=== PATIENT | male | born 1975 | race Caucasian/White ===

== ENCOUNTER 2016-08-30 09:55 | Observation (INO) | payer OTHER ==
[~2016-08-30] VITALS: Wt 90.6 kg
[2016-08-30] VITALS (7 sets, daily range): BP systolic 102–149; BP diastolic 68–99; PULSE 67–85; RESP 15–24
[2016-08-30] MEDS ORDERED: KETOROLAC 30 MG INJ IV STA (10:39)
[2016-08-30] MEDS ORDERED: SOD CHLORIDE 0.9% 1,000 ML IV STA (10:39)
[2016-08-30 11:16] LABS: BASOPHILS % 0.2 % (0.0-2.0); EOSINOPHILS # 0.1 10^3/ul (0.0-0.5); EOSINOPHILS % 0.4 % (0.0-7.0); HEMATOCRIT 42.9 % (42.0-52.0); HEMOGLOBIN 14.4 g/dl (14.0-18.0); LYMPHOCYTES # 1.6 10^3/ul (0.8-2.9); LYMPHOCYTES % 13.8 % (15.0-51.0); MEAN CORPUSCULAR HEMOGLOBIN 28.6 pg (29.0-33.0); MEAN CORPUSCULAR HGB CONC 33.6 g/dl (32.0-37.0); MEAN CORPUSCULAR VOLUME 85.1 fl (82.0-101.0); MEAN PLATELET VOLUME 6.6 fl (7.4-10.4); MONOCYTE # 1.4 10^3/ul (0.3-0.9); NEUTROPHIL # 8.6 10^3/ul (1.6-7.5); NEUTROPHILS % 73.6 % (39.0-77.0); PLATELET COUNT 300 10^3/UL (140-440); RED BLOOD COUNT 5.04 10^6/ul (4.70-6.10); RED CELL DISTRIBUTION WIDTH 12.8 % (11.5-14.5); UNCORRECTED WBC 11.6 10^3/ul (4.8-10.8); WHITE BLOOD COUNT 11.6 10^3/ul (4.8-10.8)
[2016-08-30 11:23] LABS: ALBUMIN 4.3 g/dl (3.3-4.9)
[2016-08-30 11:24] LABS: POTASSIUM 3.9 mmol/L (3.5-5.1)
[2016-08-30 11:26] LABS: ALBUMIN/GLOBULIN RATIO 1.02; BILIRUBIN,INDIRECT 0.3 mg/dl (0-1.1); BILIRUBIN,TOTAL 0.3 mg/dl (0.2-1.3); CREATININE 0.89 mg/dl (0.61-1.24); TOTAL PROTEIN 8.5 g/dl (6.1-8.1)
[2016-08-30 11:27] LABS: CALCIUM 9.3 mg/dl (8.4-10.2)
[2016-08-30 11:30] LABS: CONDITION 1
[2016-08-30] MEDS ORDERED: ASPIRIN 325 MG TAB ONE (13:24)
[2016-08-30] MEDS ORDERED: HEPARIN 25000 UNITS/250 ML 250 ML IV STA (13:26)
[2016-08-30] MEDS ORDERED: ASPIRIN 325 MG TAB PO ONE (13:30)
[2016-08-30] MEDS ORDERED: CLOPIDOGREL 75 MG TAB PO ONE (13:30)
[2016-08-30] MEDS ORDERED: ATORVASTATIN 40 MG TAB PO ONE (13:30)
--- NOTE | 2016-08-30 13:44 | ERA ---
ER Documentation Chief Complaint Date/Time DATE: 08/30/16 TIME: 13:38 Chief Complaint chest pain today with hx of cough and uri symptoms.possible stemi in field HPI Patient comes in by ambulance with sudden onset chest pain that began around 0 800 a.m. this morning. The pain radiated into the back of his neck. He described it as a pressure sensation that gradually worsened with shortness of breath and nausea. He states initially he did not want to come to the emergency department but his girlfriend or called the ambulance and brought him here. He states that he is also had a fever with a sore throat for the last 4 days. He saw his primary care physician on Wednesday for the sore throat and was prescribed Zithromax. He states that has improved significantly. He denies any coughing, congestion, rhinorrhea, otalgia, dizziness, loss of consciousness, vomiting, diarrhea, abnormal rashes, leading, bruises, sick contacts, swelling. Patient states he has never experienced this type of pain before. He states at the time of presentation his chest pain is already resolved. ROS All systems reviewed and are negative except as per history of present illness. Medications Home Meds No Active Prescriptions or Reported Meds Allergies Allergies: Coded Allergies: No Known Allergy (Unverified , 08/30/16) PMhx/Soc Medical and Surgical Hx: pt denies Medical Hx, pt denies Surgical Hx Hx Alcohol Use: Yes Hx Tobacco Use: Yes Smoking Status: Current every day smoker FmHx Family History: coronary disease, No diabetes Physical Exam Vitals Vital Signs Date Time Temp Pulse Resp B/P Pulse Ox O2 Delivery O2 Flow Rate FiO2 08/30/16 11:48 Nasal Cannula 2 08/30/16 09:58 100.7 83 20 142/82 99 Physical Exam Const: Well-developed well-nourished male sitting on the bed calmly, very pleasant Head: Atraumatic Eyes: Normal Conjunctiva ENT: Normal External Ears, Nose and Mouth. Posterior pharynx is slightly erythematous Neck: Full range of motion..~ No meningismus. Resp: Clear to auscultation bilaterally Cardio: Regular rate and rhythm, no murmurs Abd: Soft, non tender, non distended. Normal bowel sounds Skin: No petechiae or rashes Back: No midline or flank tenderness Ext: No cyanosis, or edema Neur: Awake and alert Psych: Normal Mood and Affect Result Diagram: 08/30/16 1027 08/30/16 1027 Results 24 hrs Laboratory Tests Test 08/30/16 10:27 Alanine Aminotransferase (ALT/SGPT) 58IU/L Albumin 4.3g/dl Albumin/Globulin Ratio 1.02 Alkaline Phosphatase 89IU/L Anion Gap 17 Aspartate Amino Transf (AST/SGOT) 49IU/L Basophils # 0.010^3/ul Basophils % 0.2% Blood Morphology Comment Blood Urea Nitrogen 12mg/dl Calcium Level 9.3mg/dl Carbon Dioxide Level 27mmol/L Chloride Level 99mmol/L Creatinine 0.89mg/dl Direct Bilirubin 0.00mg/dl Eosinophils # 0.110^3/ul Eosinophils % 0.4% Globulin 4.20g/dl Glucose Level 96mg/dl Hematocrit 42.9% Hemoglobin 14.4g/dl Indirect Bilirubin 0.3mg/dl Lymphocytes # 1.610^3/ul Lymphocytes % 13.8% Mean Corpuscular Hemoglobin 28.6pg Mean Corpuscular Hemoglobin Concent 33.6g/dl Mean Corpuscular Volume 85.1fl Mean Platelet Volume 6.6fl Monocytes # 1.410^3/ul Monocytes % 12.0% Monoscreen Negative Neutrophils # 8.610^3/ul Neutrophils % 73.6% Nucleated Red Blood Cells # 0.010^3/ul Nucleated Red Blood Cells % 0.0/100WBC Platelet Count 24795^3/UL Potassium Level 3.9mmol/L Red Blood Count 5.0410^6/ul Red Cell Distribution Width 12.8% Sodium Level 139mmol/L Total Bilirubin 0.3mg/dl Total Protein 8.5g/dl Troponin I 3.680ng/ml White Blood Count 11.610^3/ul Current Medications Medications (Trade) Dose Ordered Sig/Noah Route PRN Reason Start Time Stop Time Status Last Admin Dose Admin Sodium Chloride (NS) 1,000 ml @ 1,000 mls/hr Q1H STAT IV 08/30/16 10:39 08/30/16 11:38 DC 08/30/16 10:39 Ketorolac Tromethamine (Toradol) 30 mg ONCE STAT IV 08/30/16 10:39 08/30/16 10:43 DC 08/30/16 11:43 Aspirin (Aspirin) 325 mg ONCE ONCE PO 08/30/16 13:30 08/30/16 13:31 DC 08/30/16 13:25 Clopidogrel Bisulfate 75 mg 75 mg ONCE ONCE PO 08/30/16 13:30 08/30/16 13:31 DC Heparin Sodium (Porcine) (Heparin 72010 Units/250 ml) 250 ml @ 0 mls/hr ONCE STAT IV 08/30/16 13:26 08/30/16 13:29 DC Atorvastatin Calcium (Lipitor) 40 mg ONCE ONCE PO 08/30/16 13:30 08/30/16 13:31 DC Procedures/MDM EKG demonstrates a normal sinus rhythm at approximately 90 bpm with no evidence of acute ischemia noted. No PE pattern noted. Normal ID intervals and normal QRS intervals. No old EKG available for comparison. 1340: Patient remains pain-free. Departure Diagnosis: Primary Impression: Chest pain Qualified Code: R07.9 - Chest pain, unspecified type Additional Impressions: Elevated troponin Fever Qualified Code: R50.9 - Fever, unspecified fever cause Pharyngitis Qualified Code: J02.9 - Pharyngitis, unspecified etiology Condition: COSTA Denson Aug 30, 2016 13:44
[2016-08-30] MEDS ORDERED: HEPARIN 25000 UNITS/250 ML 250 ML ONE (13:51)
[2016-08-30] MEDS ORDERED: CLOPIDOGREL 75 MG TAB ONE (13:52)
[2016-08-30 14:10] LABS: BARBITURATES NEGATIVE (NEGATIVE); BENZODIAZEPINES NEGATIVE (NEGATIVE); CANNABINOIDS NEGATIVE (NEGATIVE); COCAINE NEGATIVE (NEGATIVE); OPIATES NEGATIVE (NEGATIVE)
[2016-08-30] MEDS ORDERED: IODIXANOL LOCM 100 ML BTL ONE (15:25)
[2016-08-30] MEDS ORDERED: LIDOCAINE 1% (MDV) 20 ML INJ ONE (15:25)
[2016-08-30] MEDS ORDERED: VERAPAMIL 5 MG INJ ONE (15:26)
[2016-08-30] MEDS ORDERED: HEPARIN 1000 UNITS/ML 10 ML INJ ONE (15:26)
[2016-08-30] MEDS ORDERED: NITROGLYCERIN (IC) 100 MCG/ML INJ ONE (15:26)
[2016-08-30] MEDS ORDERED: MIDAZOLAM 1 MG/ML 2 ML INJ ONE (15:42)
[2016-08-30] MEDS ORDERED: FENTAnyl 50 MCG/ML VIAL ONE (15:42)
[2016-08-30] MEDS: SOD CHLORIDE 0.9% 1,000 ML IV SCH (17:03)
--- NOTE | 2016-08-30 17:19 | CONS ---
Date/Time of Note Date/Time of Note DATE: 08/30/16 TIME: 17:12 Assessment/Plan Assessment/Plan Additional Assessment/Plan Elevated troponin concerning for non-ST elevation [place] versus myocarditis Sepsis Preserved ejection fraction Family history of premature coronary artery disease -Patient with sudden onset of chest pain this morning with 3-4 days of fevers and chills. Initial troponin 3.6. Patient also with family history of premature coronary artery disease father having CABG done at 39. Given the above, patient underwent coronary angiogram which demonstrate mild nonobstructive coronary artery disease. Would continue aspirin, statin and beta rito. Would treat the underlying infection. Continue IV fluids. Consultation Date/Type/Reason Admit Date/Time Type of Consultation: cv Reason for Consultation Chest pain and elevated troponin Hx of Present Illness This is a 40-year-old male with no significant past medical history with 4 days of sore throat, body aches, fevers and chills. Patient has been on antibiotics for the past few days. This morning, patient with severe left-sided chest pressure as well as midsternum. No shortness of breath. Symptoms lasted for over 30 minutes. He called his and came to the emergency room for evaluation and care. He currently feels better and denies chest pain or shortness of breath. He otherwise denies exertional chest pain or shortness of breath, dizziness or lightheadedness. 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 Exam/Review of Systems Vital Signs Vitals Vital Signs Date Time Temp Pulse Resp B/P Pulse Ox O2 Delivery O2 Flow Rate FiO2 08/30/16 14:56 87 17 178/80 100 Room Air 08/30/16 11:48 2 08/30/16 09:58 100.7 Exam No apparent distress Constitutional: alert, oriented, well developed Head: normocephalic Neck: supple Respiratory: other (course breath sounds bilaterally, no wheezing) Cardiovascular: other (S1-S2 heard), regular rate and rhythm Gastrointestinal: bowel sounds, non-tender, other (no guarding), soft Extremities: other (no edema) Results Result Diagram: 08/30/16 1027 08/30/16 1027 Results 24 hrs Laboratory Tests Test 08/30/16 10:27 08/30/16 13:25 Alanine Aminotransferase (ALT/SGPT) 58 Albumin 4.3 Albumin/Globulin Ratio 1.02 Alkaline Phosphatase 89 Anion Gap 17 H Aspartate Amino Transf (AST/SGOT) 49 H Basophils # 0.0 Basophils % 0.2 Blood Morphology Comment Blood Urea Nitrogen 12 Calcium Level 9.3 Carbon Dioxide Level 27 Chloride Level 99 Creatinine 0.89 Direct Bilirubin 0.00 Eosinophils # 0.1 Eosinophils % 0.4 Globulin 4.20 H Glucose Level 96 Hematocrit 42.9 Hemoglobin 14.4 Indirect Bilirubin 0.3 Lymphocytes # 1.6 Lymphocytes % 13.8 L Mean Corpuscular Hemoglobin 28.6 L Mean Corpuscular Hemoglobin Concent 33.6 Mean Corpuscular Volume 85.1 Mean Platelet Volume 6.6 L Monocytes # 1.4 H Monocytes % 12.0 H Monoscreen Negative Neutrophils # 8.6 H Neutrophils % 73.6 Nucleated Red Blood Cells # 0.0 Nucleated Red Blood Cells % 0.0 Platelet Count 300 Potassium Level 3.9 Red Blood Count 5.04 Red Cell Distribution Width 12.8 Sodium Level 139 Total Bilirubin 0.3 Total Protein 8.5 H Troponin I 3.680 *H White Blood Count 11.6 H Urine Amphetamines Screen NEGATIVE Urine Barbiturates NEGATIVE Urine Benzodiazepines Screen NEGATIVE Urine Cannabinoids NEGATIVE Urine Cocaine Screen NEGATIVE Urine Opiates Screen NEGATIVE Medications Medications Current Medications Miscellaneous Information (* Miscellaneous Pharmacy Order) HOLD all METFORMIN ... ONCE ONCE XX ; Start 08/30/16 at 17:30; Stop 08/30/16 at 17:31 Acetaminophen 650 mg 650 mg Q4H PRN PO NON-CARDIAC PAIN LEVEL (1-3); Start 08/30 at 17:30 Sodium Chloride (NS) 1,000 ml @ 75 mls/hr [id number] IV ; Start 08/30/16 at 17:03; Stop 08/31/16 at 06:22 Atorvastatin Calcium (Lipitor) 20 mg HS PO ; Start 08/31/16 at 21:00 Aspirin (Aspirin) 81 mg DAILY PO ; Start 08/31/16 at 09:00 Metoprolol Tartrate (Lopressor) 25 mg BID PO ; Start 08/30/16 at 21:00; Status UNV Procedures Procedures ECG demonstrates sinus rhythm at 87 bpm, nonspecific STT wave abnormality Phil Sanchez DO Aug 30, 2016 17:19
--- NOTE | 2016-08-30 18:11 | CARRPT ---
DATE OF PROCEDURE: 08/30/2016 PROCEDURES: 1. Left heart catheterization. 2. Right and left coronary angiogram. 3. Interpretation and supervision of coronary angiogram. 4. Left ventricular pressure measurements and left ventriculogram. 5. Right radial artery approach. PATIENT HISTORY: This is a 40-year-old male who presents with non-ST elevation myocardial infarction and chest pain. FINDINGS: HEMODYNAMICS: 1. LV pressure was 108/0 with an EDP of 16. 2. Aortic was 104/61. CORONARY ANATOMY: 1. Left main is a large caliber vessel with no significant disease. 2. Circumflex is a medium caliber vessel. There is a mid 20% stenosis and a distal 10% stenosis. There is a medium caliber first obtuse marginal with an ostial 30% stenosis and a distal 20% diffuse stenosis. 3. LAD is a large caliber vessel with a mid 20% stenosis and a distal 10% stenosis. 4. RCA is a medium caliber vessel and is dominant. There is a mid 20% stenosis and a distal 10% stenosis. 5. Left ventriculogram demonstrated an ejection fraction of 60% with mild inferobasal hypokinesis. DESCRIPTION OF PROCEDURE: The patient was brought to the r and d lab technician after informed consent. The patient was prepped and draped as per protocol. Right radial access was obtained. A 5/6-Bruneian sheath was placed in the right radial artery. A 5-Bruneian JL3.5 diagnostic catheter was used to engage the left main and angiogram was performed. Next, a 5-Bruneian JR4 catheter into the left ventricle and pressure measurements were obtained as well as pullback. Next, we accessed the RCA and angiogram was performed. Given no evidence significant obstructive disease, we proceeded with a left ventriculogram to rule out stress- induced cardiomyopathy. A 6-Bruneian single pigtail was used to enter the left ventricle. Left ventriculogram was performed with normal ejection fraction with no significant abnormalities. All catheters and wires were removed. There were no immediate complications. DIAGNOSES: 1. Myocardial infarction. 2. Mild nonobstructive epicardial coronary artery disease. COMPLICATIONS: None. ESTIMATED BLOOD LOSS: Minimal. RECOMMENDATIONS: Aggressive medical management. Dictated By: INDER MAXWELL/[place] Conf#: [id number] DID#: [id number] [facility] CENTEREmery
[2016-08-30] MEDS ORDERED: morphine 10 MG INJ IM PRN (18:30)
[2016-08-30] MEDS ORDERED: morphine 2 MG INJ ONE (18:31)
[2016-08-30] MEDS: ACETAMINOPHEN 325 MG TAB PO PRN (18:38)
--- NOTE | 2016-08-30 19:18 | RADRPT ---
PROCEDURE: XR Chest. CLINICAL INDICATION: Chest pain. TECHNIQUE: Single frontal chest x-ray. COMPARISON: None. FINDINGS: There is minimal bibasilar atelectasis. No acute infiltrate, pleural effusion or pneumothorax is id entified. Cardiomediastinal silhouette is within normal limits. The osseous structures are unremar kable. IMPRESSION: 1. No evidence of acute cardiopulmonary process. RPTAT: QQ .Rasta Fuentes MD, MD Date Time Electronically viewed and signed by .Rasta Fuentes MD, on 08/30/2016 11:31 .R/
[2016-08-30 19:43] LABS: CK-MB 25.7 ng/ml (0.0-2.4)
[2016-08-30 19:53] LABS: TROPONIN-I 8.08 ng/ml (0.00-0.12)
[2016-08-30] MEDS: ASPIRIN (EC) 325 MG TAB PO SCH (20:57)
[2016-08-30] MEDS: METOPROLOL 25 MG TAB PO SCH (20:58)
[2016-08-30] MEDS ORDERED: ZOLPIDEM 5 MG TAB PO PRN (22:30)
[2016-08-31] VITALS (20 sets, daily range): BP systolic 105–130; BP diastolic 57–87; PULSE 65–93; RESP 7–27
[2016-08-31] MEDS: SOD CHLORIDE 0.9% 1,000 ML IV SCH (00:39)
[2016-08-31] MEDS ORDERED: morphine 2 MG INJ IV PRN (05:00)
[2016-08-31 05:18] LABS: BASOPHILS % 0.4 % (0.0-2.0); EOSINOPHILS % 0.5 % (0.0-7.0); HEMATOCRIT 39.6 % (42.0-52.0); HEMOGLOBIN 13.3 g/dl (14.0-18.0); LYMPHOCYTES # 2.3 10^3/ul (0.8-2.9); LYMPHOCYTES % 23.9 % (15.0-51.0); MEAN CORPUSCULAR HEMOGLOBIN 28.5 pg (29.0-33.0); MEAN CORPUSCULAR HGB CONC 33.6 g/dl (32.0-37.0); MEAN CORPUSCULAR VOLUME 84.9 fl (82.0-101.0); MEAN PLATELET VOLUME 6.1 fl (7.4-10.4); MONOCYTE # 0.9 10^3/ul (0.3-0.9); MONOCYTES % 9.1 % (0.0-11.0); NEUTROPHIL # 6.4 10^3/ul (1.6-7.5); NEUTROPHILS % 66.1 % (39.0-77.0); PLATELET COUNT 294 10^3/UL (140-440); RED BLOOD COUNT 4.66 10^6/ul (4.70-6.10); RED CELL DISTRIBUTION WIDTH 13.1 % (11.5-14.5); UNCORRECTED WBC 9.6 10^3/ul (4.8-10.8); WHITE BLOOD COUNT 9.6 10^3/ul (4.8-10.8)
[2016-08-31 05:33] LABS: CONDITION 1
[2016-08-31 05:40] LABS: POTASSIUM 4.2 mmol/L (3.5-5.1)
[2016-08-31 05:43] LABS: CALCIUM 8.6 mg/dl (8.4-10.2); CREATININE 0.69 mg/dl (0.61-1.24)
[2016-08-31 05:45] LABS: MAGNESIUM 2.1 mg/dl (1.7-2.5)
[2016-08-31 05:56] LABS: TROPONIN-I 7.22 ng/ml (0.00-0.12)
[2016-08-31] MEDS ORDERED: morphine 10 MG INJ IV PRN (06:30)
[2016-08-31] MEDS: AZITHROMYCIN 250 MG TAB PO SCH (08:11)
[2016-08-31] MEDS: ASPIRIN (EC) 325 MG TAB PO SCH ×2 (08:11→20:37)
[2016-08-31] MEDS: METOPROLOL 25 MG TAB PO SCH ×2 (08:12→20:38)
[2016-08-31] MEDS ORDERED: ASPIRIN 81 MG TAB PO SCH (09:00)
[2016-08-31] MEDS ORDERED: CLOPIDOGREL 75 MG TAB PO SCH (09:00)
[2016-08-31 11:45] LABS: CHOL/HDL RATIO 11.7 RATIO
--- NOTE | 2016-08-31 11:45 | HP ---
DATE OF ADMISSION: 08/30/2016 CHIEF COMPLAINT: "I have severe pain in my chest." HISTORY OF PRESENT ILLNESS: The patient is a very pleasant healthy 40-year-old male with no significant past medical history. He presented to the emergency department with a 4-day history of sore throat, body aches, fever and chills. He was placed on Zithromax approximately 3 days prior to admission. On the morning of admission, he had severe left-sided chest pressure that was predominantly located in his midsternal area. He had no associated shortness of breath, and his symptoms lasted over 30 minutes. He denied any nausea, vomiting or diaphoresis. He stated that his pain occurred at rest, and it was not associated with exertion. He also denied any dizziness or lightheadedness. His cardiac risk factors are inclusive of his father having a CABG at the age of 39. The patient presented to the emergency department with the aforementioned symptoms, and his initial troponin was elevated at 3.680. Based on his risk factors and early history of coronary artery disease, Dr. Sanchez has consulted on the patient who underwent an emergent angiogram. ALLERGIES: NO KNOWN DRUG ALLERGIES. MEDICATIONS: Zithromax 250 mg once daily to complete a 5-day course. PAST SURGICAL HISTORY: None. FAMILY HISTORY: His father had a CABG at age 39. SOCIAL HISTORY: Drinks alcohol occasionally. He smokes every day. Denies recreational drug use. 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 REVIEW OF SYSTEMS: Essentially negative except as stated in the history of present illness. PHYSICAL EXAMINATION: VITAL SIGNS: His temperature is 98.6, pulse rate is 67, blood pressure of 119/ 71, oxygen saturation 100% on 2 liters. His respiratory rate was 17 to 24. HEENT: Normocephalic, atraumatic. Extraocular movements are intact. Pupils are equal, round, reactive to light and accommodations. Oropharynx is clear. NECK: No JVD was noted. No thyromegaly was noted. CARDIOVASCULAR: Regular rate and rhythm without appreciable murmurs, rubs, or gallops. LUNGS: His lungs were clear to auscultation bilaterally without rales, rhonchi or crackles. ABDOMEN: Abdomen was soft, nontender, nondistended with normoactive bowel sounds present in all 4 quadrants. EXTREMITIES: No clubbing, cyanosis, or edema. LABORATORIES/TESTS: His initial troponin was elevated at 3.68. His hemoglobin was 14.4, hematocrit of 42.6, white count mildly elevated at 11.6 with 73% neutrophils, 14% lymphocytes, 12% monocytes. Toxicology screen was negative. Sodium was 139, potassium 3.9, chloride 99, bicarbonate 27, anion gap 17, BUN 12 , creatinine 0.89, glucose 96, calcium 9.3, total bilirubin 0.3, indirect 0.3, AST mildly elevated at 49, ALT 58, alkaline phosphatase 89. CK was elevated at 467. CK index was 5.5, CK-MB was 25.7. Initial troponin was 3.680. Total protein 8.5, albumin 4.3. His serology is negative for mono. IMPRESSION: The patient is a 40-year-old male who is being treated for a bacterial pharyngitis infection. He has been on Zithromax. He presented with acute chest pain that lasted 30 minutes. His EKG revealed a normal sinus rhythm and ST changes in his anterior leads. It was an abnormal EKG; however, it was not a ST-segment elevation myocardial infarction. The patient did undergo an emergent angiogram, and his arteries demonstrated nonocclusive disease. Overall, he is doing better and will be placed in the intensive care unit for monitoring. He will continue Zithromax and intravenous fluids. Further treatment recommendations to be made based on the patient's symptomatology. The case was discussed in detail with Dr. Sanchez, as well as with the patient's family members, and all questions were answered to their satisfaction. Dictated By: FRANCISCO SANCHEZ/[place] Conf#: [id number] DID#: [id number] MARCY
--- NOTE | 2016-08-31 13:33 | PN ---
Date/Time of Note Date/Time of Note DATE: 08/31/16 TIME: 13:29 Assessment/Plan VTE Prophylaxis VTE Prophylaxis Intervention: ambulation Lines/Catheters IV Catheter Type (from Nrs): Peripheral IV Central line still needed: No Urinary Cath still in place: No Assessment/Plan Assessment/Plan Myocarditis: Overall, improving, but the patient had a 10 beats of wide complex tachycardia. Case d/w team and the patient will be transferred to telemetry for ongoing monitoring for arrhythmias and repeat troponin in the AM. Hyperlipidemia: continue lipitor. Pharyngitis: continue zithromax 250 mg daily. Last dose due tomorrow to complete the z-pack. Subjective 24 Hr Interval Summary Free Text/Dictation Felling well. No complaints, but had two episodes of chest pain last night, relieved with morphine. Exam/Review of Systems Vital Signs Vitals Vital Signs Date Time Temp Pulse Resp B/P Pulse Ox O2 Delivery O2 Flow Rate FiO2 08/31/16 13:00 93 27 118/73 98 Room Air 08/31/16 12:00 100.3 08/31/16 04:00 2.0 Intake and Output 08/30/16 08/30/16 08/31/16 15:00 23:00 07:00 Intake Total 375 ml 925 ml Output Total 300 ml Balance 375 ml 625 ml Exam Constitutional: alert, oriented, well developed Psych: no complaints Head: normocephalic Eyes: nl conjunctiva ENMT: nl external ears & nose Neck: supple Respiratory: clear to auscultation Gastrointestinal: soft Musculoskeletal: nl extremities to inspection Extremities: normal pulses Results Result Diagram: 08/31/16 0440 08/31/16 0440 Results 24 hrs Laboratory Tests Test 08/30/16 19:15 08/31/16 04:40 Creatine Kinase 467 H 520 H Creatine Kinase Index 5.5 4.8 Creatinine Kinase MB (Mass) 25.70 H 25.00 H Troponin I 8.080 *H 7.220 *H Anion Gap 15 Basophils # 0.0 Basophils % 0.4 Blood Morphology Comment Blood Urea Nitrogen 8 Calcium Level 8.6 Carbon Dioxide Level 25 Chloride Level 106 Cholesterol Level 199 Cholesterol/HDL Ratio 11.7 Creatinine 0.69 Eosinophils # 0.0 Eosinophils % 0.5 Glucose Level 89 HDL Cholesterol 17 L Hematocrit 39.6 L Hemoglobin 13.3 L LDL Cholesterol, Calculated 152 Lymphocytes # 2.3 Lymphocytes % 23.9 Magnesium Level 2.1 Mean Corpuscular Hemoglobin 28.5 L Mean Corpuscular Hemoglobin Concent 33.6 Mean Corpuscular Volume 84.9 Mean Platelet Volume 6.1 L Monocytes # 0.9 Monocytes % 9.1 Neutrophils # 6.4 Neutrophils % 66.1 Nucleated Red Blood Cells # 0.0 Nucleated Red Blood Cells % 0.0 Platelet Count 294 Potassium Level 4.2 Red Blood Count 4.66 L Red Cell Distribution Width 13.1 Sodium Level 142 Triglycerides Level 152 H White Blood Count 9.6 Medications Medications Current Medications Acetaminophen (Tylenol Tab) 650 mg Q4H PRN PO NON-CARDIAC PAIN LEVEL (1-3) Last administered on 08/30/16 18:38; Admin Dose 650 MG; Start 08/30/16 at 17:30 Atorvastatin Calcium (Lipitor) 20 mg HS PO ; Start 08/31/16 at 21:00 Metoprolol Tartrate (Lopressor) 25 mg BID PO Last administered on 08/31/16 08: 12; Admin Dose 25 MG; Start 08/30/16 at 21:00 Aspirin (Ecotrin) 325 mg BID PO Last administered on 08/31/16 08:11; Admin Dose 325 MG; Start 08/30/16 at 21:00 Azithromycin (Zithromax) 250 mg DAILY PO Last administered on 08/31/16 08:11; Admin Dose 250 MG; Start 08/31/16 at 09:00; Stop 09/02/16 at 08:59 Zolpidem Tartrate (Ambien) 5 mg HS PRN PO INSOMNIA; Start 08/30/16 at 22:30 Clopidogrel Bisulfate (plaVIX) 75 mg DAILY PO Last administered on 08/31/16 08: 11; Admin Dose 75 MG; Start 08/31/16 at 09:00 Morphine Sulfate (morphine) 2 mg Q4H PRN IV PAIN LEVEL 7-10 Last administered on 08/31/16 04:46; Admin Dose 2 MG; Start 08/31/16 at 05:00 FRANCISCO PITTMAN MD Aug 31, 2016 13:33
--- NOTE | 2016-08-31 14:36 | RADRPT ---
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 Physician: STEPHY KAY Quality: Adequate Procedures: Transthoracic echocardiogram with complete 2D, M-Mode, and Doppler examination. Indications: NSTEMI. 2D/M Mode Doppler Measurement Value Normal Ranges Measurement Value Normal Ranges AoR Diam MM 3.3 cm AV Peak Farzad 1.3 m/sec ACS MM 2.0 cm AV Peak PG 7.1 mmHg LVIDd 2D 4.6 3.5 - 5.6 cm LVOT Peak Farzad 1.2 m/sec LVIDs 2D 3.4 2.1 - 4.1 cm LVOT Peak PG 5.4 mmHg LVPWd 2D 0.9 0.6 - 1.1 cm MV E Peak Farzad 0.7 m/sec IVSd 2D 1.1 0.6 - 1.1 cm MV A Peak Farzad 0.5 m/sec EDV 2D 95.5 cm3 MV E/A 1.5 ESV 2D 39.2 cm3 MV Decel Time 248 msec LA Dimen 2D 4.0 2.3 - 4.0 cm MV Decel Tate 3 MV E/A 1.5 TR Peak Farzad 2.5 m/sec TR Peak PG 24.1 mmHg PV Peak Farzad 1.3 m/sec PV Peak PG 7.0 mmHg RVSP 27.1 mmHg Findings Left Ventricle: Normal left ventricular systolic function. Normal left ventricular cavity size. Normal left ventricular wall thickness. Ejection fraction is visually estimated at 60 %. Tissue Doppler/Mitral Doppler indices are within normal limits. Right Ventricle: Normal right ventricular size. Normal right ventricular systolic function. Left Atrium: The left atrium is normal in size. Right Atrium: The right atrium is normal in size. Mitral Valve: Normal appearance of the mitral valve. Mild mitral valve regurgitation. Aortic Valve: Normal appearance of the aortic valve. No significant aortic stenosis or insufficiency. Tricuspid Valve: Normal appearance and function of the tricuspid valve with trace physiologic regurgitation. Estimated peak PA systolic pressure 27 mmHg. Pulmonic Valve: Normal pulmonic valve appearance. There is trace pulmonic regurgitation. Pericardium: Normal pericardium with no significant pericardial effusion. Aorta: Normal aortic root. IVC: Normal size and normal respiratory collapse consistent with normal right atrial pressure. Pulmonary Artery: Normal pulmonary artery size. Conclusions Normal left ventricular systolic function. Normal left ventricular cavity size. Normal left ventricular wall thickness. Ejection fraction is visually estimated at 60 %. Tissue Doppler/Mitral Doppler indices are within normal limits. Normal right ventricular size. Normal right ventricular systolic function. The left atrium is normal in size. The right atrium is normal in size. Mild mitral valve regurgitation. No significant valvular stenosis or regurgitation seen of remaining visualized valves. Normal pericardium with no significant pericardial effusion. Electronically Signed By: Phil Sanchez 31-Aug-2016 14:35:35 -0800 Patient Name: LANCE REED Study Date: 30-Aug-[id number]
--- NOTE | 2016-08-31 14:43 | CONS ---
Date/Time of Note Date/Time of Note DATE: 08/31/16 TIME: 14:40 Assessment/Plan Assessment/Plan Additional Assessment/Plan Elevated troponin concerning for non-ST elevation [place] versus myocarditis Sepsis Preserved ejection fraction Family history of premature coronary artery disease NSVT -Patient's troponins are now trending down, one episode of NSVT this morning, would continue on telemetry monitoring, increased dose of aspirin and statin therapy. Continue beta rito. Chest pain is more positional this morning, would consider trial of colchicine if not better with higher dose aspirin. Consultation Date/Type/Reason Admit Date/Time Aug 30, 2016 at 17:23 Initial Consult Date Type of Consultation: cv 24 HR Interval Summary Free Text/Dictation Patient with recurrent positional chest pain overnight, pain is better when lying on right side of shoulder, no shortness of breath or dizziness Exam/Review of Systems Vital Signs Vitals Vital Signs Date Time Temp Pulse Resp B/P Pulse Ox O2 Delivery O2 Flow Rate FiO2 08/31/16 14:00 89 26 115/72 97 Room Air 08/31/16 12:00 100.3 08/31/16 04:00 2.0 Intake and Output 08/30/16 08/30/16 08/31/16 14:59 22:59 06:59 Intake Total 300 ml 1000 ml Output Total 300 ml Balance 300 ml 700 ml Exam No apparent distress Constitutional: alert, oriented Head: normocephalic Neck: supple Respiratory: clear to auscultation, normal air movement Cardiovascular: other (S1 and S2 heard), regular rate and rhythm Gastrointestinal: bowel sounds, non-tender, other (no guarding), soft Extremities: other (no edema) Results Result Diagram: 08/31/16 0440 08/31/16 0440 Results 24 hrs Laboratory Tests Test 08/30/16 19:15 08/31/16 04:40 Creatine Kinase 467 H 520 H Creatine Kinase Index 5.5 4.8 Creatinine Kinase MB (Mass) 25.70 H 25.00 H Troponin I 8.080 *H 7.220 *H Anion Gap 15 Basophils # 0.0 Basophils % 0.4 Blood Morphology Comment Blood Urea Nitrogen 8 Calcium Level 8.6 Carbon Dioxide Level 25 Chloride Level 106 Cholesterol Level 199 Cholesterol/HDL Ratio 11.7 Creatinine 0.69 Eosinophils # 0.0 Eosinophils % 0.5 Glucose Level 89 HDL Cholesterol 17 L Hematocrit 39.6 L Hemoglobin 13.3 L LDL Cholesterol, Calculated 152 Lymphocytes # 2.3 Lymphocytes % 23.9 Magnesium Level 2.1 Mean Corpuscular Hemoglobin 28.5 L Mean Corpuscular Hemoglobin Concent 33.6 Mean Corpuscular Volume 84.9 Mean Platelet Volume 6.1 L Monocytes # 0.9 Monocytes % 9.1 Neutrophils # 6.4 Neutrophils % 66.1 Nucleated Red Blood Cells # 0.0 Nucleated Red Blood Cells % 0.0 Platelet Count 294 Potassium Level 4.2 Red Blood Count 4.66 L Red Cell Distribution Width 13.1 Sodium Level 142 Triglycerides Level 152 H White Blood Count 9.6 Medications Medications Current Medications Acetaminophen (Tylenol Tab) 650 mg Q4H PRN PO NON-CARDIAC PAIN LEVEL (1-3) Last administered on 08/30/16 18:38; Admin Dose 650 MG; Start 08/30/16 at 17:30 Atorvastatin Calcium (Lipitor) 20 mg HS PO ; Start 08/31/16 at 21:00 Metoprolol Tartrate (Lopressor) 25 mg BID PO Last administered on 08/31/16 08: 12; Admin Dose 25 MG; Start 08/30/16 at 21:00 Aspirin (Ecotrin) 325 mg BID PO Last administered on 08/31/16 08:11; Admin Dose 325 MG; Start 08/30/16 at 21:00 Azithromycin (Zithromax) 250 mg DAILY PO Last administered on 08/31/16 08:11; Admin Dose 250 MG; Start 08/31/16 at 09:00; Stop 09/02/16 at 08:59 Zolpidem Tartrate (Ambien) 5 mg HS PRN PO INSOMNIA; Start 08/30/16 at 22:30 Clopidogrel Bisulfate (plaVIX) 75 mg DAILY PO Last administered on 08/31/16 08: 11; Admin Dose 75 MG; Start 08/31/16 at 09:00 Morphine Sulfate (morphine) 2 mg Q4H PRN IV PAIN LEVEL 7-10 Last administered on 08/31/16 04:46; Admin Dose 2 MG; Start 08/31/16 at 05:00 Nicotine (Nicoderm 14 Mg/ 24hr) 1 patch DAILY TRANSDERM ; Start 08/31/16 at 15:30 Phil Sanchez DO Aug 31, 2016 14:43
[2016-08-31] MEDS ORDERED: ASPIRIN (EC) 325 MG TAB PO ONE (15:00)
[2016-08-31] MEDS: NICOTINE (14 MG/24 HR) PATCH TRANSDERM SCH (16:42)
[2016-08-31] MEDS ORDERED: ATORVASTATIN 40 MG TAB PO SCH (21:00)
[2016-08-31] MEDS ORDERED: ATORVASTATIN 20 MG TAB PO SCH ×2 (21:00)
[2016-08-31] MEDS: ACETAMINOPHEN 325 MG TAB PO PRN (23:58)
[2016-09-01] VITALS (9 sets, daily range): BP systolic 105–111; BP diastolic 55–67; PULSE 48–95; RESP 15–23
[2016-09-01] MEDS: AZITHROMYCIN 250 MG TAB PO SCH (08:56)
[2016-09-01] MEDS: NICOTINE (14 MG/24 HR) PATCH TRANSDERM SCH (08:58)
[2016-09-01] MEDS: ASPIRIN (EC) 325 MG TAB PO SCH (08:58)
[2016-09-01] MEDS: METOPROLOL 25 MG TAB PO SCH (09:01)
--- NOTE | 2016-09-01 09:16 | RADRPT ---
Vent Rate: 87 bpm RR Interval: 0 msec [place] Interval: 156 msec QRS Duration: 96 msec QT Interval: 350 msec QTC Interval: 421 msec P-R-T Benson: 35 - 16 - 6 degrees Normal sinus rhythm Normal ECG Electronically Signed By: Heriberto Doan [id number]
--- NOTE | 2016-09-01 13:00 | CONS ---
Date/Time of Note Date/Time of Note DATE: 09/01/16 TIME: 12:57 Assessment/Plan Assessment/Plan Additional Assessment/Plan Myopericarditis Mild nonobstructive coronary artery disease Preserved ejection fraction Family history of premature coronary artery disease Tobacco use -Patient's troponins are trending down, telemetry reviewed with no further episodes of nonsustained ventricular tachycardia. No further chest pain. Patient counseled extensively regarding aspirin titration down over the next 2 weeks. No strenuous activity for at least one month. Continue statin and beta rito. Smoking cessation. DC planning Consultation Date/Type/Reason Admit Date/Time Aug 30, 2016 at 17:23 Type of Consultation: cv 24 HR Interval Summary Free Text/Dictation Patient feeling much better, denies any further chest pain, shortness of breath or dizziness. One episode of elevated temperature yesterday Exam/Review of Systems Vital Signs Vitals Vital Signs Date Time Temp Pulse Resp B/P Pulse Ox O2 Delivery O2 Flow Rate FiO2 09/01/16 12:17 66 09/01/16 12:16 98.0 22 106/55 98 08/31/16 15:30 Room Air 08/31/16 04:00 2.0 Intake and Output 08/31/16 08/31/16 09/01/16 15:00 23:00 07:00 Intake Total 500 ml 600 ml Output Total 350 ml Balance 150 ml 600 ml Exam Walking in the room, no apparent distress Constitutional: alert, oriented, well developed Head: normocephalic Neck: supple Respiratory: clear to auscultation, normal air movement Cardiovascular: other (S1-S2 heard), regular rate and rhythm Gastrointestinal: bowel sounds, non-tender, other (no guarding), soft Extremities: other (no edema) Results Result Diagram: 08/31/160 08/31/16 0440 Results 24 hrs Laboratory Tests Test 09/01/16 09:12 Troponin I 2.710 *H Medications Medications Current Medications Acetaminophen (Tylenol Tab) 650 mg Q4H PRN PO NON-CARDIAC PAIN LEVEL (1-3) Last administered on 08/31/16 23:58; Admin Dose 650 MG; Start 08/30/16 at 17:30 Metoprolol Tartrate (Lopressor) 25 mg BID PO Last administered on 09/01/16 09: 01; Admin Dose 25 MG; Start 08/30/16 at 21:00 Azithromycin (Zithromax) 250 mg DAILY PO Last administered on 09/01/16 08:56; Admin Dose 250 MG; Start 08/31/16 at 09:00; Stop 09/02/16 at 08:59 Zolpidem Tartrate (Ambien) 5 mg HS PRN PO INSOMNIA; Start 08/30/16 at 22:30 Morphine Sulfate (morphine) 2 mg Q4H PRN IV PAIN LEVEL 7-10 Last administered on 08/31/16 04:46; Admin Dose 2 MG; Start 08/31/16 at 05:00 Nicotine (Nicoderm 14 Mg/ 24hr) 1 patch DAILY TRANSDERM Last administered on 16:42; Admin Dose 1 PATCH; Start 08/31/16 at 15:30 Aspirin (Ecotrin) 650 mg BID PO Last administered on 09/01/16 08:58; Admin Dose 650 MG; Start 08/31/16 at 21:00 Atorvastatin Calcium (Lipitor) 40 mg DAILY@21 PO Last administered on 08/31/16 20:37; Admin Dose 40 MG; Start 08/31/16 at 21:00 Phil Sanchez DO Sep 01, 2016 13:00
--- NOTE | 2016-09-01 13:55 | PN ---
Date/Time of Note Date/Time of Note DATE: 09/01/16 TIME: 13:43 Assessment/Plan VTE Prophylaxis VTE Prophylaxis Intervention: ambulation, SCD's Lines/Catheters IV Catheter Type (from Nrsg): Peripheral IV Urinary Cath still in place: No Assessment/Plan Assessment/Plan 40 yo male with 1. Myocarditis: CE trended down VSS and no further NSVT Appreciate recommendations from Dr Sanchez, patient to go home today on ASA, Lopressor and ststins F/u with Cardiology within 1 week and with PCP within 1 week 2. Hyperlipidemia: continue Lipitor. 3. Pharyngitis: post course of Zithromax, last dose today. Prophylaxis: Pepcid for GI ppx while on high dose aspirin, ambulatory Disposition: d/c home today. with follow up with PCP and cardiology Subjective 24 Hr Interval Summary Free Text/Dictation Patient doing well Appreciate cardiology recommendations Exam/Review of Systems Vital Signs Vitals Vital Signs Date Time Temp Pulse Resp B/P Pulse Ox O2 Delivery O2 Flow Rate FiO2 09/01/16 12:17 66 09/01/16 12:16 98.0 22 106/55 98 08/31/16 15:30 Room Air 08/31/16 04:00 2.0 Intake and Output 08/31/16 08/31/16 09/01/16 15:00 23:00 07:00 Intake Total 500 ml 600 ml Output Total 350 ml Balance 150 ml 600 ml Exam Constitutional: alert, oriented, well developed Respiratory: clear to auscultation, normal air movement Cardiovascular: nl pulses, regular rate and rhythm Gastrointestinal: non-tender, soft Musculoskeletal: nl extremities to inspection Extremities: normal pulses, other (no edema, clubbing or cyanosis ) Neurological: CREDIT REVIEW ANALYST II-XII intact, nl mental status, nl speech, nl strength Results Result Diagram: 08/31/160 08/31/16 0440 Results 24 hrs Laboratory Tests Test 09/01/16 09:12 Troponin I 2.710 *H Medications Medications Current Medications Acetaminophen (Tylenol Tab) 650 mg Q4H PRN PO NON-CARDIAC PAIN LEVEL (1-3) Last administered on 08/31/16 23:58; Admin Dose 650 MG; Start 08/30/16 at 17:30 Metoprolol Tartrate (Lopressor) 25 mg BID PO Last administered on 09/01/16 09: 01; Admin Dose 25 MG; Start 08/30/16 at 21:00 Azithromycin (Zithromax) 250 mg DAILY PO Last administered on 09/01/16 08:56; Admin Dose 250 MG; Start 08/31/16 at 09:00; Stop 09/02/16 at 08:59 Zolpidem Tartrate (Ambien) 5 mg HS PRN PO INSOMNIA; Start 08/30/16 at 22:30 Morphine Sulfate (morphine) 2 mg Q4H PRN IV PAIN LEVEL 7-10 Last administered on 08/31/16 04:46; Admin Dose 2 MG; Start 08/31/16 at 05:00 Nicotine (Nicoderm 14 Mg/ 24hr) 1 patch DAILY TRANSDERM Last administered on 16:42; Admin Dose 1 PATCH; Start 08/31/16 at 15:30 Aspirin (Ecotrin) 650 mg BID PO Last administered on 09/01/16 08:58; Admin Dose 650 MG; Start 08/31/16 at 21:00 Atorvastatin Calcium (Lipitor) 40 mg DAILY@21 PO Last administered on 08/31/16 20:37; Admin Dose 40 MG; Start 08/31/16 at 21:00 KEE NIELSON Sep 01, 2016 13:53
--- NOTE | 2016-09-01 13:56 | PDOCDIS ---
Discharge Instructions CONDITION Patient Condition: Good HOME CARE INSTRUCTIONS: Diet Instructions: Regular ACTIVITY: Activity Restrictions: No Restrictions FOLLOW UP/APPOINTMENTS Appointments Follow up with PCP within 1 week Follow up with Cardiology in 1 to 2 weeks KEE NIELSON Sep 01, 2016 13:56
[2016-09-01] MEDS ORDERED: FAMO20TA18 PO (14:00)
[2016-09-01] MEDS ORDERED: ATOR40TA68 PO (14:00)
[2016-09-01] MEDS ORDERED: ASPI325T32 PO (14:00)
[2016-09-01] MEDS ORDERED: METO-448 PO (14:00)
--- NOTE | 2016-09-01 17:34 | DS ---
DATE OF ADMISSION: 08/30/2016 DATE OF DISCHARGE: 09/01/2016 POULTRY DEBEAKER DURING THIS ADMISSION: Dr. Sanchez CHIEF COMPLAINT ON ADMISSION: Severe chest pain. BRIEF HISTORY OF PRESENT ILLNESS: This is a 40-year-old male with history of tobacco use and appare ntly also at tonsillitis and pharyngitis, prior to admission has been on Zithromax, who presented to the emergency department with severe with left-sided chest pressure. The patient's troponin came b ack positive and he had a strong family history of coronary artery disease, also ongoing smoker. Th erefore, he was admitted for non-ST elevation ND and further evaluation. HOSPITAL COURSE: The patient was admitted and he had an angiogram done by Dr. Sanchez with finding o f mild to moderate coronary artery disease, but nonobstructed. His troponin did peak at 8 and now h as trended down to 2. His chest pain is resolved. He has completed his course of azithromycin and remains afebrile for at least 24 hours. His white blood cell count is within normal; therefore, the patient is discharged home today. He does not need further azithromycin. He completed his 5-day c ourse. Per Dr. Sanchez's instruction and due to the findings of myocarditis, the patient will be breezy ntained on aspirin, high dose at first tapered down to 81 mg by next week, for maintenance therapy. He is to be discharged on Lopressor and Lipitor. This has been discussed with the patient. Dr. Sony stacy also had a discussion with the patient and the patient is being discharged home today. DISPOSITION: Discharge home. DISCHARGE CONDITION: Stable. DISCHARGE DIET: Regular diet. DISCHARGE ACTIVITY: Resume home activity. FOLLOWUP: The patient is to follow up with his primary care physician within 1 week and follow up w [facility] as an outpatient within 1 week. DISCHARGE DIAGNOSES: 1. Myocarditis in setting of pharyngitis, resolving. 2. Pharyngitis, resolved. 3. Hyperlipidemia. Continue Lipitor. 4. Elevated troponin and episode of nonsustained ventricular tachycardia with a negative angiogram, stable. DISCHARGE MEDICATIONS: 1. Aspirin 650 mg p.o. b.i.d. for 3 days, then 325 mg p.o. b.i.d. for 3 days, then 325 mg p.o. sharri y for 3 days, and then 81 mg p.o. daily afterwards. 2. Lipitor 40 mg p.o. daily. 3. Pepcid 20 mg p.o. b.i.d. 4. Lopressor 25 mg p.o. b.i.d. Dictated By: KEE NIELSON MD NK/NTS Conf#: [id number] DID#: [id number] CC: FRANCISCO PITTMAN MD;*EndCC*
== END 2016-09-01 14:22 | disposition home or self-care (01) ==
LOC: E/R 09:55 → MERGE 17:23 → ICU 17:23 → TEL 17:37
PROVIDERS: ADMIT Internal Medicine; ATTEND Internal Medicine
DX: I25.10 Atherosclerotic heart disease of native coronary artery without angina pectoris (principal); I51.4 Myocarditis, unspecified; J02.9 Acute pharyngitis, unspecified; E78.5 Hyperlipidemia, unspecified; F17.200 Nicotine dependence, unspecified, uncomplicated
CPT/HCPCS: 36415; 71010; 80048; 80053; 80061; 80307; 82550; 82553; 83735; 84484; 85025; 86308; 87040; 87081; 87400; 87880; 93005; 93306; 93458; 96372; 96374; 96375; C1769; C1887; J1644; J2250; J2270; J3010; J7030; Q9967; Z7500; Z7502; Z7610; G0378